=== PATIENT | male | born 1955 | race Caucasian/White ===

== ENCOUNTER 2019-10-11 17:21 | Inpatient (IN) | payer BC ==
[2019-10-11] VITALS (22 sets, daily range): BP systolic 101–186; BP diastolic 60–103; BMI 30.9
[~2019-10-11] VITALS: Ht 195.6 cm; Wt 117.7 kg
--- NOTE | ~2019-10-11 | HEMODYNAMI ---
PATIENT:KEELY GALLEGOS MEDICAL RECORD: [id number] : 53 [id number] ADMISSION DATE: 10/11/19 Generatedon:10/12/201912:05 Patient name: KEELY GALLEGOS Patient #: [id number] SSN: [id number] : 1955 Date of study: 10/12/2019 Page: Of Hemodynamic Procedure Report Patient Data Patient Demographics First Name: KEELY Gender: Male Last Name: EL : 1955 Middle Initial: A Age: 63 year(s) Patient #: [id number] Race: SSN: [id number] Additional ID: [id number] Contact details Address: [place] [address] State: [place] City: [place] Zip code: [address] Past Medical History Allergies: No known allergies Admission Admission Data Admission Date: 10/11/2019 Admission Time: 19:19 Arrival Date: 10/12/2019 Arrival Time: 0:00 Admit Source: Other Insurance Payor: Private Room #: [id number].CV05 health insurance [facility] #: [id number] Height (in.): 75 BSA: 2.46 (m2) Height (cm.): 190.5 BMI: 32.62 (kg/m2) Weight (lbs.): 261 Weight (kg.): 118.39 Lab Results Lab Result Date: 10/12/2019 Lab Result Time: 0:00 Biochemistry Name Units Result Min Max BUN mg/dl 16 --(---*)-- 7 18 Creatinine mg/dl 1.2 --(---*)-- 0.6 1.3 Troponin l ng/ml 3.287 --(----)-* 0 0.06 CBC Name Units Result Min Max Hemoglobin g/dl 15.6 --(--*-)-- 13.5 17.5 Procedure Procedure Types Cath Procedure Diagnostic Procedure LHC LHC w/Coronaries Temporary Pacemaker Sedation Charges Moderate Sedation up to 30 minutes PCI Procedure AMI/SVG/SHELLFISH BED WORKER PTCA or Stent AMI-BMS/DALE Initial Procedure Description Procedure Date Procedure Date: 10/12/2019 Procedure Start Time: 11:39 Procedure End Time: 12:03 Procedure Staff Name Function Jason Sandoval MD Performing Physician Krystal Luu RT Monitor Ewa Hernández RN Nurse Samara Miller RT Scrub Indication Chest pain Procedure Data Cath Procedure Fluoroscopy Diagnostic fluoroscopy Total fluoroscopy Time: 3.1 time: 3.1 min min Diagnostic fluoroscopy Total fluoroscopy dose: 640 dose: 640 mGy mGy Contrast Material Contrast Material Type Amount (ml) Isovue 300 78 Entry Location Entry Primary Successful Side Size Upsize Upsize Entry Closure Succes sful Closure Location (Fr) 1 (Fr) 2 (Fr) Remarks Device Remarks Femoral Right 6 Fr Exoseal artery Short Femoral Right 6 Fr vein Short Estimated blood loss: 10 ml Diagnostic catheters Device Type Used For End Catheter Placement MULTIPACK Pigtail 5 Fr Ventriculography catheter MULTIPACK JL 4.0 5Fr Procedure catheter MULTIPACK 3DRC 5Fr Procedure catheter Procedure Complications No complications Procedure Medications Medication Administration Route Dosage 0.9% NaCl I.V. 100 ml/hr Oxygen etCO2 Nasal cannula 2 l/min Lidocaine 2% added to field 20 Heparin Flush Bag added to field 2 bags (1000units/500ml NS) Versed I.V. 2 mg Fentanyl I.V. 100 mcg Heparin Bolus I.V. 4000 units Integrilin (Bolus I.V. 10.7 ml 2mg/ml) Integrilin (Bolus wasted 9.3 ml 2mg/ml) Plavix 75 mg Atropine I.V. 0.5 mg Hemodynamics Rest BSA: 2.46 (m2) HGB: 15.6 (g/dl) O2 Consumption: Estimated: 285.21 (ml/min) O2 Co nsumption indexed: Estimated:115.94 (ml/min/m) Heart Rate: 68 (bpm) Pressure Samples Time Site Value (mmHg) Purpose Heart Use Rate(bpm) 11:39 LV 98/4,15 Snapshot 69 Gradients Valve Time Site Site Mean SEP/DFP Peak To Heart Use 1 2 (mmHg) (sec/min) Peak Rate (mmHg) (bpm) Aortic 11:40 LV AO 68 Snapshots Pre Cath Intra NCS Post Cath Vital Signs Time Heart Resp SPO2 etCO2 NIBP (mmHg) Rhythm Pain Sedation Rate (ipm) (%) (mmHg) Status Level (bpm) 11:23:27 69 26 98 21 119/68(91) NSR 0 (11) 10(A) , No pain 11:27:41 71 22 98 28.5 123/88(108) NSR 0 (11) 10(A) , No pain 11:31:55 70 17 95 20 125/78(96) NSR 0 (11) 10(A) , No pain 11:36:13 67 14 96 18.7 120/70(85) NSR 0 (11) 10(A) , No pain 11:40:30 70 19 95 27 118/75(95) NSR 0 (11) 10(A) , No pain 11:44:43 70 17 96 33.7 117/75(93) NSR 0 (11) 9(A) , No pain 11:49:01 59 15 98 33.7 116/63(84) NSR 0 (11) 9(A) , No pain 11:54:00 72 18 99 29.2 Measuring NSR 0 (11) 9(A) , No pain 11:54:05 72 18 99 33.7 127/69(100) NSR 0 (11) 9(A) , No pain 11:58:25 73 19 97 30.7 134/78(106) NSR 0 (11) 10(A) , No pain 12:03:44 72 20 96 29.2 126/68(112) NSR 0 (11) 10(A) , No pain Medications Time Medication Route Dose Verified Delivered Reason Notes Effectiveness by by 11:22:25 0.9% NaCl I.V. 100 Jason Ewa used for ml/hr Lori Hernández stretching machine tender frame 11:22:36 Oxygen etCO2 2 Jason Ewa used for Nasal l/min Lroi Hernández procedure cannula RN 11:22:42 Lidocaine 2% added 20ml Jason Jason for local to vial Lori Sandoval MD anesthetic field 11:22:46 Heparin Flush added 2 Jason Jason used for Bag to bags Lori Sandoval MD procedure (1000units/500ml field NS) 11:39:06 Versed I.V. 2 mg Jason Ewa for sedation Lori Hernández RN 11:39:17 Fentanyl I.V. 100 Jason Mcneil for sedation mcg Lori Hernández RN 11:43:42 Heparin Bolus I.V. 4000 Jason Mcneil for verif ied units Lori Hernández anticoagulation with Dr. SHELLY Sandoval 11:46:04 Integrilin I.V. 10.7 Jason Mcneil for (Bolus 2mg/ml) ml Lori Hernández antiplatelet RN therapy 11:51:11 Atropine I.V. 0.5 Jason Mcneil Per physician mg Lori Hernández RN 11:54:56 Integrilin wasted 9.3 Jason Mcneil for (Bolus 2mg/ml) ml Lori Hernández antiplatelet RN therapy 11:55:05 Plavix 75 mg Jason Hernández RN Procedure Log Time Note 11:02:32 Arrival Date: 10/12/2019 12:00:00 AM 11:02:51 Admit Source: Other 11:02:56 Insurance Payor : Private health insurance 11:03:11 Patient Height : 75 inches 11:03:17 Patient Weight : 261 lbs 11:05:53 Lab Result : Troponin l 3.287 ng/ml 11:05:53 Lab Result : Hemoglobin 15.6 g/dl 11:05:53 Lab Result : BUN 16 mg/dl 11:05:53 Lab Result : Creatinine 1.2 mg/dl 11:06:29 Indication : Chest pain 11:07:46 ACC Patient presents with Non-STEMI CCS Anginal Class 3--Marked limitation of physical activity, angina occurs with ordinary activity.. 11:07:56 Procedure Status Urgent Heart Cath (IP). 11:07:59 Ewa Hernández RN sent for patient. Start room use. 11:08:02 Time tracking: Call back (After hours or weekends) 11:08:12 Plan of Care:Hemodynamics will remain stable., Cardiac rhythm will remain stable., Comfort level will be maintained., Respiratory function will remain adequate., Patient/ family verbilizes understanding of procedure., Procedure tolerated without complication., Recovers from procedure without complications.. 11:09:02 H&P Date Dictated: 10/12/2019 Emergent; H&P N/A. 11:09:37 2) 60-89 Mildly reduced kidney function, and other findings (as for stage 1) point to kidney disease. 11:10:22 Maximum allowable contrast dose (3.7 X eGFR X 0.75)180 ml. 11:22:15 Vital chart was started 11:22:25 0.9% NaCl 100 ml/hr I.V. was administered by Ewa Hernández RN; used for procedure; Verbal order read back and verified. 11:22:36 Oxygen 2 l/min etCO2 Nasal cannula was administered by Ewa Hernández RN; used for procedure; Verbal order read back and verified. 11:22:42 Lidocaine 2% 20ml vial added to field was administered by Jason Sandoval MD; for local anesthetic; Verbal order read back and verified. 11:22:46 Heparin Flush Bag (1000units/500ml NS) 2 bags added to field was administered by Jason Sandoval MD; used for procedure; Verbal order read back and verified. 11:27:09 Patient received from CVICU to CCL 1 Alert and oriented. Tansferred to table in Supine position. 11:27:10 Warm blankets applied, and teetee hugger turned on for patient comfort. 11:27:11 Correct patient and procedure confirmed by team. 11:27:12 Baseline sample Acquired. 11:27:12 ECG and BP/O2 sat monitors applied to patient. 11:27:23 Full Disclosure recording started 11:27:29 Pre-procedure instructions explained to patient. 11:27:30 Family in patients room. 11:27:37 Patient NPO since Midnight. 11:27:48 Patient allergic to No known allergies 11:27:55 Is the patient allergic to Iodine/contrast media? No. 11:27:56 Was the patient premedicated? Yes 11:27:57 Is patient on blood thinner?Yes 11:28:01 ACC The patient was administered the following blood thiners within the last 24 hours: ACCPlavix 11:28:08 Patient diabetic? No. 11:28:17 Snore? No 11:28:19 Sleep apnea? No 11:28:25 Dentures? No ? 11:28:39 Patient pain scale 1/10 pressure. 11:28:47 IV patent on arrival in right hand with 0.9% NaCl at O. 11:28:52 Lab results completed and on chart. 11:28:56 Stress Test: no; N/A ? 11:38:12 Risk of Mortality: .2 11:38:14 Risk of blood transfusion: .2 11:38:18 Risk of PEDRO: 1.5 11:38:23 Right groin area was prepped with chlora-prep and draped in sterile fashion 11:38:24 Alarms reviewed by R. N. 11:38:24 Sharps counted by scrub and verified by R.N. 11:38:29 Physician arrived 11:38:30 --------ALL STOP TIME OUT------ 11:38:31 Final Timeout: patient, procedure, and site verified with staff and physician. All members of the team are in agreement. 11:38:33 Right groin site verified by team. 11:38:44 Fire Safety Assessment: A--An alcohol-based skin anteseptic being used preoperatively., C--Open oxygen or nitrous oxide is being used., D--An ESU, laser, or fiber-optic light is being used. 11:38:56 Physical assessment completed. ASA score P 4 - A patient with severe systemic disease that is a constant threat to life as per Jason Sandoval MD. 11:39:00 Sedation plan: IV Moderate Sedation Medication:Versed, Fentanyl 11:39:06 Versed 2 mg I.V. was administered by Ewa Hernández RN; for sedation; Verbal order read back and verified. 11:39:10 Use device set Femoral Dx 11:39:13 Procedure started. 11:39:17 Fentanyl 100 mcg I.V. was administered by Ewa Hernández RN; for sedation; Verbal order read back and verified. 11:39:17 Local anesthetic to right femoral artery with Lidocaine 2% by Jason Sandoval MD.INITIAL ACCESS ONLY 11:39:28 A 6 Fr Short sheath was inserted into the Right Femoral artery 11:39:31 ACIST Syringe (19795) opened to sterile field. 11:39:32 Bag Decanter (2002) opened to sterile field. 11:39:33 Medline Cath Pack ([id number]) opened to sterile field. 11:39:34 ACIST Hand Control (78028) opened to sterile field. 11:39:35 ACIST Manifold (39651) opened to sterile field. 11:39:36 DIAGNOSTIC Multipack 5Fr catheter set (TG3318) opened to sterile field. 11:39:36 Tegaderm 4 x 4 (1626W) opened to sterile field. 11:39:40 EMERALD Guide Wire (502-077) opened to sterile field. 11:40:02 EF : 50 % 11:40:19 A MULTIPACK Pigtail 5 Fr catheter was advanced over the wire and used for Ventriculography. 11:40:22 Catheter removed. 11:40:28 A MULTIPACK JL 4.0 5Fr catheter was advanced over the wire and used for Procedure. 11:42:35 A MULTIPACK 3DRC 5Fr catheter was advanced over the wire and used for Procedure. 11:42:44 Catheter removed. 11:43:32 GUIDE 6FR AR 2.0 SH catheter ([id number]) opened to sterile field. 11:43:33 CHOICE PT Extra Support 182cm wire ([id number]) opened to sterile field. 11:43:42 Heparin Bolus 4000 units I.V. was administered by Ewa Hernández RN; for anticoagulation; verified with Dr. Sandoval Verbal order read back and verified. 11:43:49 Pre PCI Site: [place] pRCA has 100% stenosis. 11:46:04 Integrilin (Bolus 2mg/ml) 10.7 ml I.V. was administered by Ewa Hernández RN; for antiplatelet therapy; Verbal order read back and verified. 11:46:07 6 Fr AR2SH guide catheter was inserted over the wire 11:46:11 choice wire advanced. 11:46:43 Inflate balloon Inflation number: 1 A EUPHORA 3.0 x 20 Balloon ([id number]) was prepped and advanced across the Prox RCA 100, then inflated to 13 BRITTANY for 0:03 (min:sec) . 11:47:07 Balloon re-inserted over wire. 11:48:05 Place stent Inflation Number: 2 A ROBERTO CARLOS RX 3.0 x 30 stent ([id number]) was prepped and advanced across the Prox RCA 100. The stent was deployed at 15 BRITTANY for 0:12 (min:sec) 0. 11:48:32 Inflation number: 3 The stent balloon was then re-inflated across the Prox RCA 0 to 21 BRITTANY for 0:00 (min:sec) . 11:49:05 Balloon removed over the wire. 11:49:06 Wire removed. 11:49:07 Guide catheter removed. 11:49:17 EXOSEAL 6Fr (EX600) opened to sterile field. 11:49:31 Sheath removed intact; hemostasis achieved with Exoseal to the Right Femoral artery. 11:50:54 Fluoroscopy time 03.10 minutes. 11:51:00 Fluoroscopy dose: 640 mGy 11:51:00 Flurop Dose total: 640 11:51:11 Atropine 0.5 mg I.V. was administered by Ewa Hernández RN; Per physician; Verbal order read back and verified. 11:51:12 Dose Area Product 85361 mGy/cm. 11:51:19 Contrast amount:Isovue 300 78ml. 11:51:22 Maximum allowable dose exceeded? No. 11:51:25 Sharps counted by scrub and verified by R.N. 11:51:26 Insertion/operative site no bleeding no hematoma. 11:51:29 Post-op/insertion site Right Femoral artery dressed using a 4 x 4 and Tegaderm. 11:52:27 Patient getting zenaida rhythm. 11:54:08 Local anesthetic to right femoral vein with Lidocaine 2% by Jason Sandoval MD.ADDITIONAL ACCESS 11:54:19 A 6 Fr Short sheath was inserted into the Right Femoral vein 11:54:56 Integrilin (Bolus 2mg/ml) 9.3 ml wasted was administered by Ewa Hernández RN; for antiplatelet therapy; Verbal order read back and verified. 11:55:05 Plavix 75 mg was administered by Ewa Hernández RN; ; Verbal order read back and verified. 11:55:08 --------Temp Pacer------- 11:57:02 Temporary pacer turned on with the following settings: Rate 40, MA 5, Sensitivity demand. 12:00:41 5Fr J Tip Temporary Pacing Catheter ([id number]) opened to sterile field. 12:00:52 SHEATH 6FR Houstonia (BGE100) opened to sterile field. 12:01:09 ACT drawn and resulted at 188 seconds. (normal therapeutic range 180-240 seconds). 12:01:45 Procedure ended.(Physican Out) 12:02:01 Post-procedure physical assessment completed. ASA score P 4 - A patient with severe systemic disease that is a constant threat to life as per Jason Sandoval MD. 12:02:07 Post procedure rhythm: paced 12:02:10 Estimated blood loss: 10 ml 12:02:25 Post procedure instruction explained to patient.Patient verbalizes understanding. 12:02:53 Procedure type changed to Cath procedure, Diagnostic procedure, LHC, [facility] w/Coronaries, Temporary Pacemaker, Sedation Charges, Moderate Sedation up to 30 minutes, PCI procedure, AMI/SVG/SHELLFISH BED WORKER PTCA or Stent, AMI-BMS/DALE Initial 12:02:55 Procedure and supply charges have been captured, reviewed, submitted and are correct. 12:03:16 Procedure Complication : No complications 12:03:19 Vital chart was stopped 12:03:22 [facility] Findings: MVD- PCI performed (see procedure note) 12:03:24 Operative report dictated upon procedure completion. 12:03:27 See physician's report for complete and final results. 12:03:31 Report given to CVICU. 12:03:35 Patient transfered to CVICU with Bed. 12:03:37 Procedure ended. 12:03:37 Full Disclosure recording stopped 12:03:42 End room use (Document Last) 12:04:57 End room use (Document Last) 12:05:23 End room use (Document Last) Intervention Summary Intervention Notes Time ActionType Lesion and Equipment Used Action# Pressure Duration Attributes 11:46:43 Inflate Prox RCA EUPHORA 3.0 x 1 13 00:03 balloon 20 Balloon ([id number]) 11:48:05 Place stent Prox RCA ROBERTO CARLOS RX 3.0 x 2 15 00:12 30 stent ([id number]) 11:48:32 Reinflate Prox RCA ROBERTO CARLOS RX 3.0 x 3 21 00:00 stent 30 stent balloon ([id number]) Device Usage Item Name Manufacture Quantity Catalog Number Hospital Part Current M inimal Lot# / Charge Number Stock Stock Serial# Code ACIST Syringe Acist 1 52695 465822 287558 552748 2 0 (53548) Medical Systems Inc Bag Decanter Microtek 1 437781 23413 142834 5 () Medical Inc. Medline Cath Medline 1 [id number] 293249 69011 284947 5 Pack ([id number]) ACIST Hand Acist 1 61048 512885 006021 615008 5 Control Medical (11434) Systems Inc ACIST Manifold Acist 1 28646 584690 062858 533163 5 (12981) Medical Systems Inc DIAGNOSTIC Cardinal 1 LB7140 701169 70918 529479 3 0 Multipack 5Fr Health catheter set (RR4669) Tegaderm 4 x 4 3M 1 1626W 844122 300884 291703 5 (1626W) EMERALD Guide Cardinal 1 502-455 196375 690328 692666 5 Wire (502-455) Health MULTIPACK Cardinal 1 130225 5 Pigtail 5 Fr Health catheter MULTIPACK JL Cardinal 1 436508 5 4.0 5Fr Health catheter MULTIPACK 3DRC Cardinal 1 779219 5 5Fr catheter Health GUIDE 6FR AR Medtronic 1 [id number] 597279 90261 450225 1 2.0 SH catheter ([id number]) CHOICE PT Stanford 1 [id number] 303293 000111 540871 5 Extra Support Scientific 182cm wire ([id number]) EUPHORA 3.0 x Medtronic 1 [id number] 412408 493599 436671 5 [id number] 20 Balloon ([id number]) ROBERTO CARLOS RX 3.0 x Medtronic 1 [id number] 321911 9783042 075410 5 [id number] 30 stent ([id number]) EXOSEAL 6Fr Cardinal 1 EX600 608115 187996 896079 1 0 (EX600) Health 5Fr J Tip Briseno 1 [id number] 121034 91663 948374 2 Temporary Lifesciences Pacing Catheter ([id number]) SHEATH 6FR Terumo 1 XRI965 176440 635250 342443 4 0 Houstonia ([id number]) Signature Audit Crockett Stage Time Signature Unsigned Intra-Procedure 10/12/2019 Krystal Luu 12:04:57 PM RT(R) Intra-Procedure 10/12/2019 Ewa Hernández 12:05:23 PM RN Intra-Procedure 10/12/2019 Jason Sandoval 12:05:47 PM [id number] [place] [address]
--- NOTE | ~2019-10-11 | HEMODYNAMI ---
PATIENT:KEELY GALLEGOS MEDICAL RECORD: [id number] : 53 [id number] ADMISSION DATE: 10/11/19 Generatedon:10/13/201910:56 Patient name: KEELY GALLEGOS Patient #: [id number] SSN: [id number] : 1955 Date of study: 10/13/2019 Page: Of Hemodynamic Procedure Report Patient Data Patient Demographics Procedure consent was obtained First Name: KEELY Gender: Male Last Name: EL : 1955 Middle Initial: A Age: 63 year(s) Patient #: [id number] Race: SSN: [id number] Additional ID: [id number] Contact details Address: [place] [address] State: [place] City: [place] Zip code: [address] Past Medical History Allergies: No known allergies Admission Admission Data Admission Date: 10/11/2019 Admission Time: 19:19 Arrival Date: 10/12/2019 Arrival Time: 0:00 Admit Source: Other Insurance Payor: Private Room #: D.CV05 health insurance [facility] #: [id number] Height (in.): 75 BSA: 2.46 (m2) Height (cm.): 190.5 BMI: 32.62 (kg/m2) Weight (lbs.): 261 Weight (kg.): 118.39 Lab Results Lab Result Date: 10/13/2019 Lab Result Time: 0:00 Biochemistry Name Units Result Min Max BUN mg/dl 13.7 --(--*-)-- 7 18 Creatinine mg/dl 16 --(----)-* 0.6 1.3 eGFR ml/min 64.49300 *-(----)-- 90 120 NONAFRICAN Troponin l ng/ml 3.287 --(----)-* 0 0.06 CBC Name Units Result Min Max Hematocrit % 46.6 --(-*--)-- 42 54 Hemoglobin g/dl 15.6 --(--*-)-- 13.5 17.5 Procedure Procedure Types Cath Procedure Diagnostic Procedure FFR/IVUS FFR Initial PCI Procedure Coronary Stent Coronary Stent Initial x2 Procedure Description Procedure Date Procedure Date: 10/13/2019 Procedure Start Time: 10:33 Procedure End Time: 10:52 Procedure Staff Name Function Jason Sandoval MD Performing Physician Rashmi Giraldo RT Monitor Karla Toussaint RT Monitor Mag Rivera RN Nurse Dakota Cartagena RT Scrub Procedure Data Cath Procedure Fluoroscopy Diagnostic fluoroscopy Total fluoroscopy Time: 3.1 time: 3.1 min min Diagnostic fluoroscopy Total fluoroscopy dose: 310 dose: 310 mGy mGy Contrast Material Contrast Material Type Amount (ml) Isovue 300 97 Entry Location Entry Primary Successful Side Size Upsize Upsize Entry Closure Succes sful Closure Location (Fr) 1 (Fr) 2 (Fr) Remarks Device Remarks Femoral Left 6 Fr Exoseal artery Short Estimated blood loss: 10 ml Procedure Complications No complications Procedure Medications Medication Administration Route Dosage Oxygen etCO2 Nasal cannula 2 l/min Lidocaine 2% added to field 20 Heparin Flush Bag added to field 2 bags (1000units/500ml NS) 0.9% NaCl I.V. 100 ml/hr Versed I.V. 1 mg Fentanyl I.V. 50 mcg Versed I.V. 1 mg Fentanyl I.V. 50 mcg Heparin Bolus I.V. 4000 units Mechanical Ventricular Support IABP: Other mechanical ventricular support: Hemodynamics Rest BSA: 2.46 (m2) O2 Consumption: Estimated: 268.67 (ml/min) O2 Consumption indexed : Estimated:109.22 (ml/min/m) Heart Rate: 50 (bpm) Snapshots Pre Cath Intra NCS Post Cath Vital Signs Time Heart Resp SPO2 etCO2 NIBP (mmHg) Rhythm Pain Sedation Rate (ipm) (%) (mmHg) Status Level (bpm) 10:25:00 63 23 95 0 120/73(91) NSR 0 (11) 10(A) , No pain 10:29:18 66 14 93 0 127/73(98) NSR 0 (11) 10(A) , No pain 10:33:38 62 17 92 0 119/76(91) NSR 0 (11) 10(A) , No pain 10:37:52 64 19 94 0 125/80(102) NSR 0 (11) 9(A) , No pain 10:42:10 68 17 92 0 125/80(92) NSR 0 (11) 9(A) , No pain 10:46:28 67 14 94 0 133/79(105) NSR 0 (11) 10(A) , No pain 10:50:52 60 16 96 0 114/69(94) NSR 0 (11) 10(A) , No pain Medications Time Medication Route Dose Verified Delivered Reason Notes Effectiveness by by 10:23:59 Oxygen etCO2 2 Jason Buffie used for Nasal l/min Lori Rivera RN procedure cannula 10:25:04 Lidocaine 2% added 20ml Jason Jason for local to vial Lori Sandoval MD anesthetic field 10:25:10 Heparin Flush added 2 Jason Jason used for Bag to bags Lori Sandoval MD procedure (1000units/500ml field NS) 10:25:20 0.9% NaCl I.V. 100 Jason Buffie Per physician ml/hr Lori Rivera RN 10:33:46 Versed I.V. 1 mg Jason Buffie for sedation Lori Rivera RN 10:33:51 Fentanyl I.V. 50 Jason Buffie for sedation mcg Lori Rivera RN 10:35:14 Versed I.V. 1 mg Jason Buffie for sedation Lori Rivera RN 10:35:18 Fentanyl I.V. 50 Jason Buffie for sedation mcg Lori Rivera RN 10:36:51 Heparin Bolus I.V. 4000 Jason Buffie for units Lori Rivera RN anticoagulation Procedure Log Time Note 10:02:51 Patient Height : 75 inches 10:02:51 Patient Weight : 261 lbs 10:03:05 Informed consent obtained and on chart 10:05:21 Procedure Status Elective Heart Cath (OP). 10:05:26 Dakota WOOTEN(R) sent for patient. Start room use. 10:05:28 Time tracking: Regular hours (M-F 7:00 - 5:00) 10:05:33 Plan of Care:Hemodynamics will remain stable., Cardiac rhythm will remain stable., Comfort level will be maintained., Respiratory function will remain adequate., Patient/ family verbilizes understanding of procedure., Procedure tolerated without complication., Recovers from procedure without complications.. 10:12:03 H&P Date Dictated: 10/13/2019 New H&P dictated by physician.. 10:12:08 Family in waiting room. 10:12:11 Patient NPO since Midnight. 10:13:39 Lab Result : BUN 13.7 mg/dl 10::39 Lab Result : Troponin l 3.287 ng/ml 10::39 Lab Result : Creatinine 16 mg/dl 10::39 Lab Result : eGFR NONAFRICAN 64.96202 ml/min 10::39 Lab Result : Hematocrit 46.6 % 10::39 Lab Result : Hemoglobin 15.6 g/dl 10:13:45 Lab results completed and on chart. 10:16:18 Patient received from CVICU to CCL 1 Alert and oriented. Tansferred to table in Supine position. 10:16:19 Warm blankets applied, and teetee hugger turned on for patient comfort. 10:16:20 Correct patient and procedure confirmed by team. 10:16:21 ECG and BP/O2 sat monitors applied to patient. 10:18:01 Stress Test: no; N/A ? 10:18:05 Risk of Mortality: .1 10:18:08 Risk of blood transfusion: .2 10:18:11 Risk of PEDRO: 2.3 10:18:23 Right groin area was prepped with chlora-prep and draped in sterile fashion 10:18:25 Alarms reviewed by R. N. 10:18:26 Sharps counted by scrub and verified by R.N. 10:19:57 Patient allergic to No known allergies 10:20:00 Is the patient allergic to Iodine/contrast media? No. 10:20:02 Was the patient premedicated? Yes 10:20:04 Is patient on blood thinner?Yes 10:20:08 ACC The patient was administered the following blood thiners within the last 24 hours: ACCPlavix 10:20:11 Patient diabetic? No. 10:20:14 If diabetic: On Metformin? N/A 10:20:19 Previous problem with sedation/anesthesia? No ? 10:20:20 Snore? No 10:20:22 Snore? No 10:20:24 Sleep apnea? No 10:20:26 Deviated septum? No 10:20:27 Opens mouth fully? Yes 10:20:28 Sticks out tongue? Yes 10:20:30 Airway obstruction? No ? 10:20:35 Dentures? No none 10:20:46 Pre procedure: right dorsailis pedis pulse 2+ Normal; easily identifiable; not easily obliterated 10:20:51 Patient pain scale 1/10 ?. 10:21:30 IV patent on arrival in left antecubital with 0.9% NaCl at [facility]. 10:22:00 Pre-procedure instructions explained to patient. 10:22:01 Pre-op teaching completed and patient verbalized understanding. 10:23:48 Vital chart was started 10:23:59 Oxygen 2 l/min etCO2 Nasal cannula was administered by Mag Rivera RN; used for procedure; Verbal order read back and verified. 10:24:44 Procedure type changed to Cath procedure, Diagnostic procedure, FFR/IVUS, FFR Initial, PCI procedure, Coronary Stent, Coronary Stent Initial x2 10:24:48 Diagnostic Cath Status : Urgent 10:24:54 IABP : 10:24:55 Other mechanical ventricular support: 10:25:04 Lidocaine 2% 20ml vial added to field was administered by Jason Sandoval MD; for local anesthetic; Verbal order read back and verified. 10:25:10 Heparin Flush Bag (1000units/500ml NS) 2 bags added to field was administered by Jason Sandoval MD; used for procedure; Verbal order read back and verified. 10:25:20 0.9% NaCl 100 ml/hr I.V. was administered by Mag Rivera RN; Per physician; Verbal order read back and verified. 10:30:28 PACEMAKER TURNED OFF DURING PROCEDURE PER DR SANDOVAL 10:30:28 Baseline sample Acquired. 10:30:30 Full Disclosure recording started 10:30:47 Baseline sample Acquired. 10:30:58 Rhythm: sinus bradycardia, paced 10::01 Zero performed for pressure channel P1 10::14 --------ALL STOP TIME OUT------ 10::15 Final Timeout: patient, procedure, and site verified with staff and physician. All members of the team are in agreement. 10:31:18 Left groin site verified by team. 10:31:25 Fire Safety Assessment: A--An alcohol-based skin anteseptic being used preoperatively., C--Open oxygen or nitrous oxide is being used., D--An ESU, laser, or fiber-optic light is being used. 10:31:31 Physical assessment completed. ASA score P 3 - A patient with severe systemic disease as per Jason Sandoval MD. 10:31:36 2) 60-89 Mildly reduced kidney function, and other findings (as for stage 1) point to kidney disease. 10:31:39 Maximum allowable contrast dose (3.7 X eGFR X 0.75)183 ml. 10:31:44 Sedation plan: IV Moderate Sedation Medication:Versed, Fentanyl 10:32:31 Use device set CATH PACK 10:32:33 ACIST Syringe (43789) opened to sterile field. 10:32:34 ACIST Hand Control (93406) opened to sterile field. 10:32:34 ACIST Manifold (67902) opened to sterile field. 10:32:35 Medline Cath Pack ([id number]) opened to sterile field. 10:32:36 Bag Decanter (2002S) opened to sterile field. 10:32:39 EMERALD Guide Wire (325-373) opened to sterile field. 10:33:00 SHEATH 6FR Port Tobacco (BEL858) opened to sterile field. 10:33:01 INFLATOR Merit BasixCompak (MZ6400) opened to sterile field. 10:33:05 Procedure started. 10:33:13 Local anesthetic to left femerol artery with Lidocaine 2% by Jason Sandoval MD.INITIAL ACCESS ONLY 10:33:46 Versed 1 mg I.V. was administered by Mag Rivera RN; for sedation; Verbal order read back and verified. 10:33:51 Fentanyl 50 mcg I.V. was administered by Mag Rivera RN; for sedation; Verbal order read back and verified. 10:34:41 GUIDE 6FR XBLAD 3.5 catheter ([id number]) opened to sterile field. 10:34:42 [place] Verrata Plus pressure wire (87108J) opened to sterile field. 10:34:56 A 6 Fr Short sheath was inserted into the Left Femoral artery 10:35:14 Versed 1 mg I.V. was administered by Mag Rivera RN; for sedation; Verbal order read back and verified. 10:35:18 Fentanyl 50 mcg I.V. was administered by Mag Rivera RN; for sedation; Verbal order read back and verified. 10:35:20 6 Fr xblad 3.5 guide catheter was inserted over the wire 10:36:33 ASAHI BLACK WIRE ADVANCED 10:36:35 Wire advanced across lesion. 10:36:51 Heparin Bolus 4000 units I.V. was administered by Mag Rivera RN; for anticoagulation; Verbal order read back and verified. 10:38:06 Place stent Inflation Number: 1 A ROBERTO CARLOS RX 2.75 x 08 stent ([id number]) was prepped and advanced across the Mid LAD . The stent was deployed at 13 BRITTANY for 0:00 (min:sec) . 10:38:28 Stent catheter was removed intact over wire. 10:38:30 Wire removed. 10:38:44 FFR/IFR wire advanced. 10:39:56 Wire advanced across lesion. 10:40:05 mCirc lesion measured at .88 with IFR 10:41:19 Pre PCI Site: [place] mCirc has 70% stenosis. 10:42:30 Place stent Inflation Number: 1 A ROBERTO CARLOS RX 3.0 x 38 stent ([id number]) was prepped and advanced across the Mid CX . The stent was deployed at 13 BRITTANY for 0:00 (min:sec) . 10:42:59 Stent catheter was removed intact over wire. 10:44:28 Place stent Inflation Number: 2 A ROBERTO CARLOS RX 2.75 x 18 stent ([id number]) was prepped and advanced across the Mid CX . The stent was deployed at 13 BRITTANY for 0:00 (min:sec) . 10:44:44 Stent catheter was removed intact over wire. 10:44:44 Wire removed. 10:44:45 Guide catheter removed. 10:44:55 EXOSEAL 6Fr (EX600) opened to sterile field. 10:45:16 Sheath removed intact; hemostasis achieved with Exoseal to the Left Femoral artery. 10:45:24 Procedure ended.(Physican Out) 10:45:39 Fluoroscopy time 03.10 minutes. 10:45:44 Flurop Dose total: 310 10:45:44 Fluoroscopy dose: 310 mGy 10:45:54 Dose Area Product 37555 mGy/cm. 10:46:01 Contrast amount:Isovue 300 97ml. 10:46:04 Maximum allowable dose exceeded? No. 10:46:06 Sharps counted by scrub and verified by R.N. 10:46:23 Post left femerol artery:stable, soft, clean and dry 10:46:58 RT FEMORAL SHEATH AND TEMP PACER PULLED MANUAL PRESSURE HELD. 10:47:05 Post Procedure Pulses reassessed and unchanged 10:47:10 Post procedure: right dorsailis pedis pulse 2+ Normal; easily identifiable; not easily obliterated. 10:47:15 Post-procedure physical assessment completed. ASA score P 3 - A patient with severe systemic disease as per Jason Sandoval MD. 10:47:30 Post procedure rhythm: sinus rhythm 10:47:36 Estimated blood loss: 10 ml 10:47:38 Post procedure instruction explained to patient.Patient verbalizes understanding. 10:47:39 Patient needs reinforcement of post procedure teaching. 10:50:21 ACT drawn and resulted at 262 seconds. (normal therapeutic range 180-240 seconds). 10:50:32 Procedure and supply charges have been captured, reviewed, submitted and are correct. 10:50:37 Procedure Complication : No complications 10:50:41 Vital chart was stopped 10:50:47 [facility] Findings: MVD- PCI performed (see procedure note) 10:50:50 Operative report dictated upon procedure completion. 10:50:51 See physician's report for complete and final results. 10:50:54 Report given to CVICU. 10:50:59 Patient transfered to CVICU with Bed. 10:52:58 Procedure ended. 10:52:58 Full Disclosure recording stopped 10:53:07 ACC-PCI Only Patient was given prescriptions, or instructed by Jason Sandoval MD to start/continue the following medications upon discharge: Plavix 10:53:09 End room use (Document Last) 10:55:39 End room use (Document Last) 10:56:38 End room use (Document Last) Intervention Summary Intervention Notes Time ActionType Lesion and Equipment Used Action# Pressure Duration Attributes 10:38:06 Place stent Mid LAD ROBERTO CARLOS RX 2.75 x 1 13 00:00 08 stent ([id number]) 10:42:30 Place stent Mid CX ROBERTO CARLOS RX 3.0 x 1 13 00:00 38 stent ([id number]) 10:44:28 Place stent Mid CX ROBERTO CARLOS RX 2.75 x 2 13 00:00 18 stent ([id number]) Device Usage Item Name Manufacture Quantity Catalog Hospital Part Current Minimal Lot# / Number Charge Number Stock Stock Serial# Code ACIST Syringe Acist 1 16257 [id number] 035566 108996 20 (62293) Medical Systems Inc ACIST Hand Acist 1 80670 319927 195428 805761 5 Control Medical (91394) Systems Inc ACIST Manifold Acist 1 64258 600704 780415 280935 5 (15810) Medical Systems Inc Medline Cath Medline 1 [id number] 039997 56285 698617 5 Pack ([id number]) Bag Decanter Microtek 1 2001S 485878 53750 584508 5 (2001S) Medical Inc. EMERALD Guide Cardinal 1 502455 971136 883766 963973 5 Wire (502-455) Health SHEATH 6FR Terumo 1 WWJ109 114382 509793 485484 40 Port Tobacco (NYR337) INFLATOR Merit Merit 1 RF5117 055715 885089 842553 15 BasCorpora Medical (EU3813) GUIDE 6FR Cardinal 1 [id number] 127748 431738 632663 10 XBLAD 3.5 Health catheter ([id number]) [place] 1 [id number] 621631 077174000 443040 5 Verrata Plus pressure wire (19160T) ROBERTO CARLOS RX 2.75 x Medtronic 1 [id number] 802826 5685117 552937 5 [id number] 08 stent ([id number]) ROBERTO CARLOS RX 3.0 x Medtronic 1 [id number] 906478 8790571 751607 5 [id number] 38 stent ([id number]) ROBERTO CARLOS RX 2.75 x Medtronic 1 [id number] 843147 1050280 429930 5 [id number] 18 stent ([id number]) EXOSEAL 6Fr Cardinal 1 EX600 515166 186685 172241 10 (EX600) Health Signature Audit [place] Stage Time Signature Unsigned Intra-Procedure 10/13/2019 Karla Toussaint 10:55:39 AM RT(R) Intra-Procedure 10/13/2019 Mag Rivera RN 10:56:38 AM Intra-Procedure 10/13/2019 Jason Sandoval 10:56:57 AM [facility] [address] [place] [address]
[~2019-10-11 17:21] MED LIST: LIPITOR10 MG PO
[2019-10-11 17:53] LABS: BASOPHILS 0.2 % (0-2); EOSINOPHILS 1.2 % (0-7); HEMATOCRIT 46.6 % (42.0-54.0); HEMOGLOBIN 15.6 g/dL (13.5-17.5); IMMATURE GRANULOCYTES 0.4 % (0-5); LYMPHOCYTES 24.5 % (15-50); MCH 30.1 pg (26.0-34.0); MCHC 33.5 g/dL (31.0-37.0); MCV 89.8 fL (80.0-100.0); MEAN PLATELET VOLUME 10.6 fL (7.4-10.4); MONOCYTES 7.5 % (2-11); NEUTROPHILS 66.2 % (40-80); PLATELET COUNT 241 10x3/uL (130-400); RBC 5.19 10x6/uL (4.20-6.10); RDW 13.9 % (11.5-14.5); WBC 11.4 10x3/uL (4.8-10.8)
[2019-10-11 18:01] LABS: APTT 29.6 SECONDS (22.8-39.4); CALC OSMOLALITY 287 mosm/kg (275-300); CALCIUM 9.4 mg/dL (8.5-10.1); CARBON DIOXIDE 27.9 mmol/L (21.0-32.0); CHLORIDE - SERUM 105 mmol/L (98-107); CREATININE - SERUM 1.4 mg/dL (0.6-1.3); GLUCOSE 144 mg/dL (74-106); INR 0.96 (0.85-1.17); POTASSIUM - SERUM 3.8 mmol/L (3.5-5.1); PROTIME 12.3 SECONDS (11.6-15.0); SODIUM 143 mmol/L (136-145); UREA NITROGEN 13 mg/dL (7-18); eGFR NON AFRICAN AMERICAN 54 mL/min (90-120)
[2019-10-11 18:20] LABS: ALBUMIN 3.6 g/dL (3.4-5.0); ALKALINE PHOSPHATASE 74 U/L (46-116); ALT (SGPT) 127 U/L (10-68); BILIRUBIN - TOTAL 0.33 mg/dL (0.2-1.3); CKMB 3.1 U/L (0.0-3.6); CREATINE KINASE 147 UL (21-232); MAGNESIUM - SERUM 2.1 mg/dL (1.8-2.4); PRO BNP 63 pg/mL (0-125); PROTEIN - SERUM 7.6 g/dL (6.4-8.2)
[2019-10-11 18:28] LABS: TROPONIN-I < 0.017 ng/mL (0.000-0.060)
--- NOTE | 2019-10-11 19:10 | NUR ---
PT RETURNED FROM CT AT THIS TIME. PT HR IS 36, BP 101/60. ADVISED EDP. NEW EKG OBTAINED AND NEW MEDS ORDERED.
--- NOTE | 2019-10-11 19:14 | NUR ---
PT MOVED TO T3 AT THIS TIME. BP 144/80 HR 53 AFTER ATROPINE GIVEN.
--- NOTE | 2019-10-11 19:20 | NUR ---
prior to leaving for ct pt bp was 186/99, hr 57 98%, and rr 14.
--- NOTE | 2019-10-11 19:20 | NUR ---
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 also monitoring bp and pulse ox
--- NOTE | 2019-10-11 19:50 | NUR ---
REC'D PT TO ROOM CVO5 VIA STRETCHER, ASSISTED TO BED, ALL MONITORS ESTABLISHED, PT AWAKE, ALERT, AND ORIENTED ON O2 @ 2LITERS VIA NC, RIGHT HAND PIV SALINE LOCKED, LEFT A/C PIV SALINE LOCKED, CM-SR @ 69, PT REPORTS "PRESSURE IN CENTER OF CHEST RADIATING TO SHOULDERS AND NECK", STATES "IT IS NOT LIKE THE PAIN I WAS HAVING EARLIER", BP ELEVATED, BROUGHT TO BS AND HISTORY OBTAINED, PT COMPLAINS OF DRY MOUTH, EXPLAINED TO PT HE IS NPO AT THIS TIME, VERBALIZES UNDERSTANDING, PT DENIES OTHER NEEDS, SR UP X 2, BED IN LOW POSITION, CALL LIGHT IN REACH.
[2019-10-11 20:13] LABS: CKMB 3.1 U/L (0.0-3.6); CREATINE KINASE 134 UL (21-232)
[2019-10-11 20:28] LABS: TROPONIN-I 0.075 ng/mL (0.000-0.060)
--- NOTE | 2019-10-11 20:30 | NUR ---
FAMILY BROUGHT TO BS, UPDATE PROVIDED AND QUESTIONS ANSWERED.
--- NOTE | 2019-10-11 20:42 | NUR ---
DR. LEE REGARDING CRITICAL LAB RESULTS AND FURTHER ORDERS
--- NOTE | 2019-10-11 20:45 | NUR ---
SPOKE WITH DR. LEE REGARDING CRITICAL LAB, NEW ORDERS REC'D.
--- NOTE | 2019-10-11 22:15 | NUR ---
SON REMAINS AT BS, PT RESTING QUIETLY, PT REPORTS PRESSURE IN CHEST IMPROVED, CM-SR @ 62 WITH OCCASIONAL PVCS, BP 145/81, PT INSTRUCTED TO NOTIFY NURSE OF WORSENING CHEST PAIN IMMEDIATELY, VERBALIZES UNDERSTANDING, SR UP X 2, CALL LIGHT IN REACH.
--- NOTE | 2019-10-11 22:55 | NUR ---
CM-SB @ 36, PT AWAKE AND ALERT, BP 101/55, PT DENIES PRESSURE IN CHEST, NECK, AND SHOULDERS ANY WORSE, SPOKE WITH DR. LEE REGARDING EKG CHANGES, 1 MG ATROPINE GIVEN IVP AT THIS TIME, CM-SR @ 71, BP 117/76, PT DENIES NEEDS.
--- NOTE | 2019-10-11 23:00 | NUR ---
LOVENOX GIVEN TO LLQ, PT DOZING AT THIS TIME, BP STABLE, SON AT BS.
[2019-10-12] VITALS (34 sets, daily range): BP systolic 92–131; BP diastolic 53–87; Ht 195.6 cm; Wt 117.7 kg
--- NOTE | 2019-10-12 01:00 | NUR ---
PT RESTING EYES CLOSED, RESP EVEN AND UNLABORED, CM-61, BP STABLE, SON AT BS, WILL CONT TO MONITOR FOR CHANGES.
[2019-10-12 02:25] LABS: CREATINE KINASE 371 UL (21-232)
[2019-10-12 02:26] LABS: TROPONIN-I 3.287 ng/mL (0.000-0.060)
--- NOTE | 2019-10-12 03:00 | NUR ---
12 BEAT RUN OF VTACH NOTED ON MONITOR, PT SLEEPING ON ENTERING ROOM AWAKENS EASILY, DENIES FURTHER PAIN OR SOB, BP 113/76, WILL CONTINUE TO MONITOR CLOSELY FOR CHANGES.
--- NOTE | 2019-10-12 04:30 | NUR ---
PT COMPLAINS OF DRY MOUTH, LEMON GLYCERIN SWABS PROVIDED, PT DENIES NEEDS, VSS, CM-SR @ 64 WITH INTERMITTENT BRADYCARDIA 38-40 UNSUSTAINED, WILL CONT PT DENIES PAIN, REPORTS SLIGHT PRESSURE IN CHEST BUT DENIES PAIN, STATES "IT'S JUST ANNOYING", PT DENIES FURTHER NEEDS, SR UP X 2, CALL LIGHT IN REACH.
--- NOTE | 2019-10-12 05:02 | NUR ---
PT RESTING IN BED EYES CLOSED, CM-SB AT 33-41, PT EASILY AWAKENED, BP 100/55, 1MG ATROPINE GIVEN SLOW IVP AT THIS TIME, HR INCREASED TO 65, BP 114/63 PT DENIES CHEST PAIN, STATES " THE PRESSURE IS STILL THERE BUT NO WORSE", WILL CONTINUE TO MONITOR FOR CHANGES.
[2019-10-12 05:51] LABS: BASOPHILS 0.1 % (0-2); EOSINOPHILS 0.1 % (0-7); HEMATOCRIT 42.9 % (42.0-54.0); HEMOGLOBIN 14.1 g/dL (13.5-17.5); IMMATURE GRANULOCYTES 0.4 % (0-5); LYMPHOCYTES 13.2 % (15-50); MCH 29.7 pg (26.0-34.0); MCHC 32.9 g/dL (31.0-37.0); MCV 90.3 fL (80.0-100.0); MEAN PLATELET VOLUME 10.7 fL (7.4-10.4); MONOCYTES 9.7 % (2-11); NEUTROPHILS 76.5 % (40-80); PLATELET COUNT 237 10x3/uL (130-400); RBC 4.75 10x6/uL (4.20-6.10); RDW 14.4 % (11.5-14.5); WBC 12.3 10x3/uL (4.8-10.8)
[2019-10-12 06:17] LABS: ALBUMIN 3.3 g/dL (3.4-5.0); BILIRUBIN - TOTAL 0.48 mg/dL (0.2-1.3); CALCIUM 8.9 mg/dL (8.5-10.1); CARBON DIOXIDE 26.1 mmol/L (21.0-32.0); CREATININE - SERUM 1.2 mg/dL (0.6-1.3); PROTEIN - SERUM 6.9 g/dL (6.4-8.2)
[2019-10-12 06:18] LABS: ANION GAP 13.7 mmol/L (8-16); POTASSIUM - SERUM 4.8 mmol/L (3.5-5.1)
--- NOTE | 2019-10-12 07:15 | NUR ---
REPORT RECEIVED. PT HAS DEFIB PADS ON AND IS CURRENTLY HOOKED UP TO CRASH CART IN CASE NEEDED. HR IS CURRENTLY AT 67. PT HAS IV TO RT HAND AND LT AC. SALINE LOCK. USES URINAL. SON AT BEDSIDE. COMPLAINS OF PRESSURE IN CHEST. OFFERED PAIN MEDICATION. REFUSED AT THIS TIME. WILL CONTINUE TO MONITOR.
--- NOTE | 2019-10-12 09:12 | NUR ---
PT RESTING QUIETLY. VSS. FAMILY AT BEDSIDE. O2 AT 2L. TOOK ASPIRIN WITH SMALL SIP OF WATER.
--- NOTE | 2019-10-12 10:55 | NUR ---
RIGHT GROIN HAIR CLIPPED. CRISTIANO GROINS AND CRISTIANO WRISTS CLEANED WITH HCG. PT PUT INTO GOWN. UNDERWEAR OFF. VOIDED 250ML. PREOP MEDICATIONS GIVEN.
--- NOTE | 2019-10-12 11:05 | NUR ---
PT TAKEN TO WHEEL GRINDER.
--- NOTE | 2019-10-12 12:31 | NUR ---
PT BACK FROM PROFESSIONAL DRIVER. STENT TO RCA. PT HAS TEMPORARY PACEMAKER SET AT 40 AT THIS TIME. WILL GO BACK TO PROFESSIONAL DRIVER TOMORROW TO STENT LAD PER DR LEE. PT TO LAY STRAIGHT WHILE TEMP PACEMAKER IN PLACE. EDUCATED PT AND FAMILY ON THIS. PULSE PALPABLE IN RIGHT FOOT. DRESSING TO RIGHT GROIN C/D/I. NO S/S HEMATOMA. WILL CONTINUE TO MONITOR.
--- NOTE | 2019-10-12 13:47 | NUR ---
DRESSING TO RIGHT GROIN C/D/I. NO S/S OF HEMATOMA. RIGHT PEDAL PULSE PALPABLE. PT HAS LEG STRAIGHT. VSS. WILL CONTINUE TO MONITOR.
--- NOTE | 2019-10-12 15:00 | NUR ---
PT RESTING QUIETLY. VSS. REASSESSMENT DONE. PALP PEDAL PULSE IN RLE. NO S/S OF BLEEDING IN RIGHT GROIN.
--- NOTE | 2019-10-12 16:30 | NUR ---
PT'S HEAD RAISED TO 10 DEGREES. PLACED IN REVERSE TRENDELENBERG TO DRINK SOME WATER. KNOWS TO NOT BEND RIGHT LEG. FAMILY AT BEDSIDE. VSS.
--- NOTE | 2019-10-12 17:41 | NUR ---
PT BATHED AND IN BED. KRISHNA KUHN AND SCDS ON.
--- NOTE | 2019-10-12 19:10 | NUR ---
REPORT REC'D AND CARE ASSUMED, REC'D PT ON O2 @ 3LITERS VIA NC, AWAKE, ALERT, AND ORIENTED X 4, RIGHT HAND PIV WITH NS @ 100CC/HR, AND LEFT A/C PIV SALINE LOCKED, PT DENIES PAIN, ABD SOFT BS X 4, RIGHT GROIN DRSG CDI, NO BLEEDING OR HEMATOMA, TEMP P/M SET @ 40 VMA 5, CURRENTLY SENSING, CM-SR @ 69, PT REQUESTING SOMETHING TO DRINK, CLAY SODA PROVIDED ON REQUEST, PT DENIES FURTHER NEEDS, BED IN REVERSE [place]EN[place]G FOR COMFORT, VISIBLE TO NURSES STATION.
--- NOTE | 2019-10-12 21:00 | NUR ---
EVENING MEDS GIVEN, DAUGHTER AT BS, UPDATE GIVEN AND QUESTIONS ANSWERED, PT DENIES NEEDS, WILL CONT TO MONITOR.
--- NOTE | 2019-10-12 23:00 | NUR ---
PT RESTING EYES CLOSED, RESP EVEN AND UNLABORED, REASSESSMENT COMPLETED, RIGHT GROIN DRSG CDI, TEMP P/M SENSING, NO BLEEDING OR HEMATOMA NOTED AT INSERTION SITE, CALL LIGHT IN REACH.
[2019-10-13] VITALS (33 sets, daily range): BP systolic 97–135; BP diastolic 60–80
--- NOTE | 2019-10-13 01:05 | NUR ---
NO CHANGES IN STATUS AT THIS TIME
--- NOTE | 2019-10-13 03:00 | NUR ---
REASSESSMENT COMPLETED, NO CHANGES FROM PREVIOUS ASSESSMENT, RIGHT GROIN DRSG CDI, NO BLEEDING OR HEMATOMA NOTED, TEMP P/M SENSING, CM-SR @ 64, BED IN LOW POSITION, CALL LIGHT IN REACH, VISIBLE TO NURSES STATION.
--- NOTE | 2019-10-13 08:00 | NUR ---
SHIFT ASSESSMENT COMPLETE. PT RESTING, WAITING FOR PROCEDURE. AT BEDSIDE.
--- NOTE | 2019-10-13 09:29 | HP ---
PATIENT: KEELY AGOSTO MEDICAL RECORD: [id number] ACCOUNT: [id number] [facility] 53 AD[facility] DATE: 10/11/19 PCP: BOLA POLANCO DO HISTORY AND PHYSICAL EXAMINATION DIAGNOSES: 1. Non-Q-wave myocardial infarction. 2. Coronary artery disease. 3. Hyperlipidemia. HISTORY OF PRESENT ILLNESS: Mr. Agosto has a history of being cathed by Dr. Mcgarry approximately 5 years ago, told he had 50% stenosis. No intervention was undertaken. He began having chest pain yesterday. He continues to have chest pain today. His troponin is elevated at 3. PHYSICAL EXAMINATION: CONSTITUTIONAL/GENERAL APPEARANCE: Well nourished, well developed, appears stated age. EYES: Lids and conjunctivae noninjected. No discharge. No pallor. ENT: Lips within normal limit. No cyanosis. No pallor. NECK: Carotid arteries, bilateral normal upstroke. No bruits. No thrills. No jugular venous pressure or distention. CERVICAL LYMPH NODES: Nontender. Nonenlarged. THYROID: Not enlarged. No nodules. CARDIOVASCULAR: Precordial exam, nondisplaced. No heaves or pericardial thrills. Rate and rhythm, regular. Heart sounds, normal S1, normal S2. No S3, no gallop, no rub. Systolic murmur, not heard. Diastolic murmur, not heard. RESPIRATORY: Respiratory effort, unlabored. Normal curvature. No thoracic deformity. No chest wall tenderness. Percussion, resonant. Auscultation, clear. No wheezes, no rales, no rhonchi. ABDOMEN: Soft, nondistended, nontender. No abdominal pain, no vomiting and normal appetite. MUSCULOSKELETAL: No joint tenderness, normal gait, normal tone. SKIN: Warm and dry. OVERALL IMPRESSION: Non-Q-wave myocardial infarction with continued chest pain. We will proceed with coronary angiography. Further care depends upon findings of the angiography. TRANSINT:[id number] Voice Confirmation ID: [id number] DOCUMENT ID: [id number] CROW LEE MD at 0929 CC: [id number] DICTATION DATE: 10/12/19 1022 OSTRICH FARMER: 10/12/19 1031 ADM IN [facility] [address] [place] [address]
--- NOTE | 2019-10-13 09:29 | OP ---
PATIENT NAME: KEELY GALLEGOS MEDICAL RECORD: [id number] :53 [facility] ADMISSION DATE:10/11/19 SURGEON: CROW LEE MD DATE OF OPERATION: 10/12/2019 PROCEDURES: 1. PTCA stent RCA. 2. Temporary pacemaker placement. 3. Left heart catheterization. 4. Selective coronary angiography. 5. Left ventriculogram. INDICATION: Myocardial infarction. DESCRIPTION OF PROCEDURE: After informed consent was obtained and after a detailed description of the risks, benefits as well as alternative therapies, the patient elected to proceed with angiogram and angioplasty. The right femoral area was prepped and draped in normal sterile fashion. Right femoral artery cannulated via modified Seldinger technique with placement of a 6-Filipino sheath. Right femoral vein cannulated via modified Seldinger technique with placement of 6-Filipino sheath. All catheters exchanged through this sheath. FINDINGS: The patient was bradycardic during and after the procedure, temporary pacemaker was placed. The left ventriculogram was performed in standard 30-degree AMIN view, reveals inferior hypokinesis, ejection fraction still preserved at greater than 50%. SELECTIVE CORONARY ANGIOGRAPHY: 1. Left main showed no significant angiographic disease. 2. Left anterior descending has 90% to 95% stenosis in the proximal vessel. 3. The left circumflex has a questionable area of stenosis in the mid vessel. This will be better delineated by IFR. 4. The right coronary is acutely totally occluded. PTCA STENT OF THE RCA: The stent used was a 3.0 x 30 mm Anita. Result was 0% residual stenosis. OVERALL IMPRESSION: Successful percutaneous transluminal coronary angioplasty stent of the right coronary artery going from 100% initial stenosis to 0% residual. PLAN: For PTCA stent of the LAD and IFR of the left circumflex in the near future. TRANSINT:[id number] Voice Confirmation ID: [id number] DOCUMENT ID: [id number] CROW LEE MD at 0929 CC: [id number] DICTATION DATE: 10/12/19 1205 BAR HOST/HOSTESS: 10/12/19 1231 ADM IN [place] [id number] [place] [address]
--- NOTE | 2019-10-13 11:08 | NUR ---
PT RETURNED TO ROOM FROM [facility]. LEFT GROIN ENTRY SITE SOFT, NO S/S OF HEMATOMA. DRESSING C/D/I. RIGHT GROIN SITE WHERE TPM WAS IS SOFT, NO S/S OF HEMATOMA. DRESSING C/D/I. PT AND FAMILY INSTRUCTED MUST REMAIN FLAT 4 HOURS.
--- NOTE | 2019-10-13 11:24 | NUR ---
MYNOR LEE TALKED ABOUT LETTING PATIENT GO HOME THIS AFTERNOON. FAMILY REQUESTS PT STAY UNTIL TOMORROW MORNING FOR OBSERVATION. DR LEE AGREES TO LET PATIENT STAY AND CAN DISCHARGE IN AM IF REMAINS STABLE
--- NOTE | 2019-10-13 13:39 | NUR ---
PT RESTING QUIETLY AT THIS TIME. GROIN SITES REMAIN WNL. PULSES DOPPLERABLE BILATERAL LEGS.
--- NOTE | 2019-10-13 15:43 | NUR ---
GROIN SITES CHECKED. WNL. PT HOB RAISED FOR COMFORT AT THIS TIME.
[2019-10-13] MEDS ORDERED: PLAVIX75 MG PO (15:45)
[2019-10-13] MEDS ORDERED: BAYER CHEWABLE81 MG PO (15:46)
--- NOTE | 2019-10-13 18:17 | NUR ---
DINNER TRAY HAS BEEN PROVIDED TO PATIENT. FAMILY HAS BEEN AT BEDSIDE. NO NEEDS VOICED AT THIS TIME. PT POSITIONED FOR COMFORT. CALL LIGHT IN REACH.
--- NOTE | 2019-10-13 19:00 | NUR ---
PT AOX4, NO C/O PAIN AT THIS TIME. UNLABORED RESPIRATIONS, CLEAR LUNG SOUNDS. S1S2 HEARD, PERIPHERAL PULSES PRESENT. BILATERAL GROINS WITH INCISION, DRSGS CDI, WITH NO S/S OF HEMATOMA. VSS. PT DENIES ANY NEEDS AT THIS TIME. CALL LIGHT WITHIN PT REACH. CPOC.
--- NOTE | 2019-10-13 19:14 | MORECARE ---
CASE MANAGEMENT DISCHARGE SUMMARY PATIENT: KEELY GALLEGOS UNIT: [id number] ADM DATE: 10/11/19 AGE: 63 : 54 SEX: M ROOM/BED: [facility] AUTHOR: PABLO THOMPSON PHYSICIAN: REFERRING PHYSICIAN: CROW LEE MD DATE OF SERVICE: 10/13/19 Discharge Plan Patient Name: KEELY GALLEGOS [facility] [facility] 1955 Planned Disposition: Home Anticipated Discharge Date: Discharge Date: Expected LOS: Initial Reviewer: [email or web address] Initial Review Date: 10/13/2019 Generated: 10/13/19 8:14 pm Patient Name: KEELY GALLEGOS Page [id number] at 1914 All edits/amendments must be made on the electronic document DICTATION DATE: 10/13/191913 CLOTH SANDER: ANDREW 10/13/191913 RPT#: [id number] DC DATE: STATUS: ADM IN [facility] [address] [place] [address] END OF REPORT
--- NOTE | 2019-10-13 19:21 | MORECARE ---
CASE MANAGEMENT DISCHARGE SUMMARY PATIENT: KEELY AGOSTO UNIT: [id number] ADM DATE: 10/11/19 AGE: 63 : 54 SEX: M ROOM/BED: D[facility] AUTHOR: DONNA,DOC PHYSICIAN: REFERRING PHYSICIAN: CROW LEE MD DATE OF SERVICE: 10/13/19 Discharge Plan Patient Name: KEELY AGOSTO Facility: [facility]:[place] : 1955 Planned Disposition: Home Anticipated Discharge Date: Discharge Date: Expected LOS: Initial Reviewer: [email or web address] Initial Review Date: 10/13/2019 Generated: 10/13/19 8:21 pm Comments DCP- Discharge Planning Updated by [email or web address]: Tata Abraham on 10/13/19 6:[address] Patient Name: KEELY AGOSTO Admission Status: ER Accout number: [id number] Admission Date: 10-11-2019 : 1955 Admission Diagnosis: Attending: CHLOE LEE Current LOS: 2 Anticipated DC Date: Planned Disposition: Home Primary Insurance: [employer] [facility] Discharge Planning Comments: CM met with patient at bedside after explaining CM role and obtaining verbal consent. Patient lives at home with his Lalita where he is independent with his care and plans to return there upon discharge. Patient feels this would be a safe discharge. CM discussed availability / needs of home health and medical equipment. Patient denies any discharge needs at this time. Patient states he will have his family drive him home upon discharge. CM will continue to follow and assist as needed with discharge planning / needs. Fisher Seal: Tata Abraham DCPIA - Discharge Planning Initial Assessment Updated by [email or web address]: Tata Abraham on 10/13/19 7:14 pm * Is the patient Alert and Oriented? Yes * How many steps to enter\exit or inside your home? 3-4 * PCP Rula * Pharmacy [facility] * Preadmission Environment Home with Family * ADLs Independent * Equipment None * List name and contact numbers for known caregivers / representatives who currently or will assist patient after discharge: Lalita Agosto - spouse - [phone] * Verbal permission to speak to the caregivers and representatives has been obtained from the patient. Yes * Community resources currently utilized None * Additional services required to return to the preadmission environment? No * Can the patient safely return to the preadmission environment? Yes * Has this patient been hospitalized within the prior 30 days at any hospital? No Last DP export: 10/13/19 6:14 Patient Name: KEELY AGOSTO Page [id number] at 1921 All edits/amendments must be made on the electronic document DICTATION DATE: 10/13/191919 PAPER MACHINE TENDER: ANDREW 10/13/191919 RPT#: [id number] DC DATE: STATUS: ADM IN [facility] [address] [place] [address] END OF REPORT
--- NOTE | 2019-10-13 20:00 | NUR ---
FAMILY AT BEDSIDE, QUESTIONS ANSWERED AND UPDATE PROVIDED.
--- NOTE | 2019-10-13 23:00 | NUR ---
NO CHANGES AT THIS TIME. PT RESTING QUIETLY WITH UNLABORED RESPIRATIONS, VSS. NO C/O PAIN. BILATERAL GROIN WITH DRSG CDI, SOFT TO PALPATION. PT REPOSITIONS SELF INDEPENDENTLY. CPOC.
[2019-10-14] VITALS (14 sets, daily range): BP systolic 94–124; BP diastolic 54–74
--- NOTE | 2019-10-14 01:00 | NUR ---
PT SLEEPING QUIETLY WITH UNLABORED RESPIRATIONS. NO S/S OF PAIN OR ACUTE DISTRESS. BILATERAL GROINS WITH DRSG CDI, SOFT TO PALPATION, PERIPHERAL PULSES PRESENT. CALL LIGHT WITHIN PT REACH. CPOC.
--- NOTE | 2019-10-14 02:52 | NUR ---
PT RESTING QUIETLY, AROUSES EASILY. UNLABORED RESPIRATIONS, DENIES ANY PAIN, VSS. BILATERAL GROIN WITH DRSGS CDI, SOFT TO PALPATION. PERIPHERAL PULSES PRESENT. REPOSITIONS SELF INDEPENDENTLY. DENIES NEEDS. CALL LIGHT AND BEDSIDE TABLE WITHIN PT REACH. CPOC.
--- NOTE | 2019-10-14 06:36 | NUR ---
PT RESTING QUIETLY WITH NO S/S OF ACUTE DISTRESS OR PAIN. VSS, RESPIRATIONS UNALABORED. BILATERA GROIN REMAINS SOFT TO PALPATION, PERIPHERAL PULSES PRESENT. CALL LIGHT AND BEDSIDE TABLE WITHIN PT REACH. CPOC.
--- NOTE | 2019-10-14 08:11 | NUR ---
SHIFT ASSESSMENT COMPLETE. PT AWAKE SITTING UP IN BED. MORNING MEDICATIONS GIVEN. BREAKFAST TRAY PROVIDED. NOW AT BEDSIDE.
--- NOTE | 2019-10-14 10:06 | NUR ---
IV TO RIGHT HAND AND LAC REMOVED. TIPS INTACT. NON BLEEDING. SITES COVERED WITH BANDAGE. DISCHARGE TEACHING REVIEWED WITH PT, AND DAUGHTER. WRITTEN PRESCRIPTION FOR PLAVIX PROVIDED. UNDERSTAND PLAN FOR FOLLOWUP WITH DR LEE
--- NOTE | 2019-10-14 17:49 | MORECARE ---
CASE MANAGEMENT DISCHARGE SUMMARY PATIENT: KEELY AGOSTO UNIT: [id number] ADM DATE: 10/11/19 AGE: 63 : 53 SEX: M ROOM/BED: D.[facility] AUTHOR: DONNADOC PHYSICIAN: REFERRING PHYSICIAN: CROW LEE MD DATE OF SERVICE: 10/14/19 Discharge Plan Patient Name: KEELY AGOSTO Facility: [facility]:[place] : 1955 Planned Disposition: Home Anticipated Discharge Date: Discharge Date: 10/14/2019 Expected LOS: Initial Reviewer: [email or web address] Initial Review Date: 10/13/2019 Generated: 10/14/19 6:49 pm Comments DCP- Discharge Planning Updated by [email or web address]: Taat Abraham on 10/13/19 6:[address] Patient Name: KEELY AGOSTO Admission Status: ER Accout number: [id number] Admission Date: 10-11-2019 : 1955 Admission Diagnosis: Attending: CHLOE LEE Current LOS: 2 Anticipated DC Date: Planned Disposition: Home Primary Insurance: [employer] [place] [employer] Discharge Planning Comments: CM met with patient at bedside after explaining CM role and obtaining verbal consent. Patient lives at home with his Lalita where he is independent with his care and plans to return there upon discharge. Patient feels this would be a safe discharge. CM discussed availability / needs of home health and medical equipment. Patient denies any discharge needs at this time. Patient states he will have his family drive him home upon discharge. CM will continue to follow and assist as needed with discharge planning / needs. Truck Washer: Tata Abraham DCPIA - Discharge Planning Initial Assessment Updated by [email or web address]: Tata Abraham on 10/13/19 7:14 pm * Is the patient Alert and Oriented? Yes * How many steps to enter\exit or inside your home? 3-4 * PCP Rula * Pharmacy [place] * Preadmission Environment Home with Family * ADLs Independent * Equipment None * List name and contact numbers for known caregivers / representatives who currently or will assist patient after discharge: Lalita Agosto - spouse - [phone] * Verbal permission to speak to the caregivers and representatives has been obtained from the patient. Yes * Community resources currently utilized None * Additional services required to return to the preadmission environment? No * Can the patient safely return to the preadmission environment? Yes * Has this patient been hospitalized within the prior 30 days at any hospital? No Last DP export: 10/13/19 6:21 Patient Name: KEELY AGOSTO Page [phone] at 1740 All edits/amendments must be made on the electronic document DICTATION DATE: 10/14/191748 CHAIN SAW OPERATOR: ANDREW 10/14/191748 RPT#: [id number] DC DATE:10/14/19 STATUS: DIS IN [facility] [address] [place] [address] END OF REPORT
--- NOTE | 2019-10-20 17:02 | DS ---
PATIENT:KEELY GALLEGOS :53 MEDICAL RECORD: [id number] DISCHARGE SUMMARY ADMISSION DATE: 10/11/19 DISCHARGE DATE: 10/14/19 DATE OF DISCHARGE: 10/13/2019. DIAGNOSES: 1. Non-Q-wave myocardial infarction. 2. Coronary artery disease. 3. Percutaneous transluminal coronary angioplasty stent right coronary artery, LAD, and left circumflex this admission. 4. Hyperlipidemia. HOSPITAL COURSE: Mr. Gallegos presents with a non-Q-wave myocardial infarction as well as bradycardia, underwent cardiac catheterization revealing severe 3-vessel disease, underwent successful PTCA stent of all 3 vessels in a staged fashion. He had no further bradycardia requiring pacemaker; however, his heart rate remained low, precluding use of beta brodie. He has discharged with the addition of aspirin and Plavix and continue his Lipitor. We will follow up with [facility] in 1 month. TRANSINT:[id number] Voice Confirmation ID: [id number] DOCUMENT ID: [id number] CRWO LEE MD at 1702 CC: [id number] DICTATION DATE: 10/13/19 1049 ESTHETIC DERMATOLOGIST: 10/13/192035 DIS IN 10/14/19 [facility] [address] [place] [address]
--- NOTE | 2019-10-20 17:02 | OP ---
PATIENT NAME: KEELY GALLEGOS MEDICAL RECORD: [id number] :53 LOCATION[facility] ADMISSION DATE:10/11/19 SURGEON: CROW LEE MD DATE OF OPERATION: 10/13/2019 PROCEDURES: 1. PTCA stent LAD. 2. PTCA stent left circumflex. 3. IFR left circumflex. 4. Selective coronary angiography. INDICATION: Angina, coronary artery disease, non-Q-wave myocardial infarction. PROCEDURE IN DETAIL: After informed consent was obtained and after a detailed description of the risks, benefits as well as alternative therapies, the patient elected to proceed with angiogram and angioplasty. The left femoral area was prepped and draped in normal sterile fashion. Left femoral artery was cannulated via modified Seldinger technique with placement of 6-Bulgarian sheath. All catheters exchanged through this sheath. FINDINGS: The left anterior descending had 95% stenosis in the proximal vessel. This was addressed with a 2.75 x 12 mm Epi. Result was 0% residual stenosis. Left circumflex had 70% stenosis in the mid vessel. IFR was abnormal at 0.88. Stenting was undertaken with a 3.0 x 38 and 2.75 x18, both Alvo stents. Result was 0% residual stenosis. OVERALL IMPRESSION: Successful percutaneous transluminal coronary angioplasty stent of left anterior descending and circumflex going from 70% to 95% initial stenosis to 0% residual. TRANSINT:[id number] Voice Confirmation ID: [id number] DOCUMENT ID: [id number] CROW LEE MD at 1702 CC: [id number] DICTATION DATE: 10/13/19 1051 FRACTIONATION SUPERVISOR: 10/13/19 1101 DIS IN 10/14/19 [place] [id number] [place] [id number]
== END 2019-10-14 10:07 | disposition home or self-care (01) | DRG 246 ==
LOC: D.ER 17:21 → D.CVICU 19:19
PROVIDERS: Family Medicine; ADMIT Internal Medicine Interventional Cardiology; ATTEND Internal Medicine Interventional Cardiology
PROC: B2111ZZ Fluoroscopy of Multiple Coronary Arteries using Low Osmolar Contrast (ICD-10-PCS; 2019-10-12)
PROC: B2151ZZ Fluoroscopy of Left Heart using Low Osmolar Contrast (ICD-10-PCS; 2019-10-12)
PROC: 4A023N7 Measurement of Cardiac Sampling and Pressure, Left Heart, Percutaneous Approach (ICD-10-PCS; 2019-10-12)
PROC: 5A1223Z Performance of Cardiac Pacing, Continuous (ICD-10-PCS; 2019-10-12)
PROC: 027034Z Dilation of Coronary Artery, One Artery with Drug-eluting Intraluminal Device, Percutaneous Approach (ICD-10-PCS; principal; 2019-10-12 11:00)
PROC: 027136Z Dilation of Coronary Artery, Two Arteries with Three Drug-eluting Intraluminal Devices, Percutaneous Approach (ICD-10-PCS; 2019-10-13)
DX: I21.4 Non-ST elevation (NSTEMI) myocardial infarction (principal); E78.5 Hyperlipidemia, unspecified; I25.119 Atherosclerotic heart disease of native coronary artery with unspecified angina pectoris

== ENCOUNTER → 2020-01-23 08:10 | Outpatient (CLI) | payer MEDICARE, BC ==
[2019-10-12 10:21] VITALS: BMI 30.9
[~2020-01-23 08:10] MED LIST changes: +BAYER CHEWABLE81 MG PO; +PLAVIX75 MG PO
--- NOTE | 2020-01-23 16:42 | EC ---
PATIENT:KEELY GALLEGOS DATE OF SERVICE: 01/23/20 SEX: M MEDICAL RECORD: [id number] DATE OF : 53 LOCATION:[facility] AGE OF PATIENT: 64 ADMISSION DATE: 01/23/20 REFERRING PHYSICIAN: INTERPRETING PHYSICIAN: CROW SANDOVAL MD ECHOCARDIOGRAM REPORT ECHO CHARGES 4 ECHO COMPLETE Date: 01/23/20 CLINICAL DIAGNOSIS: CHEST DISCOMFORT/SOB/DYSPNEA/ PVC'S H/O MA/CAD ECHOCARDIOGRAPHIC MEASUREMENTS (adult normal given) AC root (d.<3.7cm) 3.5 cm LV Septum d (<1.2 cm> 1.3 cm Valve Excursion 2.2 cm LV Septum (systole) 1.9 cm Left Atria (s.<4.0cm> 4.8 cm LVPW d(<1.2cm) 1.3 cm RV (d.<2.3cm) 2.4 cm LVPW (sytole) 2.2 cm LV diastole(<5.6CM) 6.6 cm MV E-F(>70mm/sec) cm LV systole 3.9 cm LVOT Diameter 2.1 cm MV exc.(>10mm) cm Est.ejection fraction (50-75%) % DOPPLER: LVIT cm/sec A 65.0 cm/sec E 74.0 cm/sec LA cm/sec RVSP mmHg LVOT 102 cm/sec AOP1/2T m/s Asc. Ao 163 cm/sec RVOT 71.0 cm/sec RA cm/sec PA 101 cm/sec AV Gradient Peak 11.0 mmHg AV Mean 5.5 mmHg AV Area 2.3 cm MV Gradient Peak 3.3 mmHg MV Mean 1.0 mmHg MV Area cm COMMENTS: OP - HC Personal Assistant: 1 ANNE-MARIE MILFORD Radio Engineering Teacher: 1 Dr. Sandoval TAPE# PACS Pericardial Effusion N DATE OF SERVICE: ECHOCARDIOGRAM FINDINGS: 1. Left ventricular chamber size is mildly dilated. Left ventricular systolic function is preserved at 55%. 2. Left atrium is dilated at 4.8 cm. Right atrium and right ventricular chamber sizes are as well mildly dilated. ECHOCARDIOGRAM REPORT [id number] KEELY GALLEGOS 3. Valvular structures have normal structure and motion. 4. Doppler interrogation reveals mild aortic insufficiency, mild mitral regurgitation, mild tricuspid regurgitation, no other valvular insufficiency or stenosis. 5. No evidence of pericardial effusion or left ventricular thrombus. TRANSINT:[id number] Voice Confirmation ID: [id number] DOCUMENT ID: [id number] CROW SANDOVAL MD at 1642 CC: [id number] DICTATION DATE: 01/23/20 1149 CHILDREN LIBRARIAN: 01/23/20 1422 [facility] [address] [place] [id number]
== END | disposition home or self-care (01) ==
LOC: D.HCCECHO 08:10
PROVIDERS: ATTEND Internal Medicine Interventional Cardiology
DX: I25.10 Atherosclerotic heart disease of native coronary artery without angina pectoris (principal)